=== PATIENT | male | born 1950 | race Caucasian/White ===

== ENCOUNTER 2018-03-28 07:25 | Day surgery (SDC) | payer MEDICARE, OTHER ==
[~2018-03-28] VITALS: Ht 172.7 cm; Wt 59.9 kg
--- NOTE | ~2018-03-28 | OP ---
PATIENT NAME: JANIYA MYLES MEDICAL RECORD: [id number] :48 LOCATION:.[facility] ADMISSION DATE: SURGEON: STEPHANIE CHASE MD DATE OF OPERATION: 03/28/2018 SURGEON: Stpehanie Chase MD ANESTHESIA: TIVA by Nahid Marin CRNA PREOPERATIVE DIAGNOSIS: Elevated PSA of 7.5 on 02/19/2018. PROCEDURE: Transrectal ultrasound and prostate biopsy. FINDINGS: 29 gram prostate with some intraprostatic calcifications at the apex. No hypoechoic areas. SPECIMENS: Prostate biopsy cores. ESTIMATED BLOOD LOSS: None. CLINICAL HISTORY: This is a 67-year-old male, who was referred by Dr. Lavell Rodríguez for an elevated PSA of 7.5. This blood test was obtained on 02/19/2018. On 03/03/2017, the PSA was 0.97. He has no voiding symptoms. He has no family history of prostate cancer. On rectal examination, the prostate felt somewhat enlarged. He comes today to have a prostate biopsy performed. He is allergic to CODEINE and PENICILLIN. He was given Levaquin IV cement mason apprentice to the OR. DESCRIPTION OF PROCEDURE: The patient was given IV sedation. He was then placed into the lithotomy position. The transrectal ultrasound probe was introduced and prostate size measurements were obtained. The prostate is measured at 29 grams. Sextant biopsies were then obtained with at least 3 cores from each sextant. Once all the specimens were obtained, the procedure was terminated. The patient will be seen next week to review the pathology results. TRANSINT:[id number] Voice Confirmation ID: [id number] DOCUMENT ID: [id number] STEPHANIE CHASE MD at 1252 CC: [id number] DICTATION DATE: 03/28/18 1232 NETWORK LEAD: 03/28/18 1248 [id number] [place] [id number]
[~2018-03-28 07:25] MED LIST: MULTI-DAY VITAM1 TAB PO
[2018-03-28] MEDS ORDERED: SMZ-TMP DS TAB 800 (08:22)
[2018-03-28 08:39] VITALS: BP 138/81; Ht 172.7 cm; Wt 59.9 kg
[2018-03-28 08:47] LABS: HEMATOCRIT 41.3 % (42.0-54.0); MCHC 33.9 g/dL (31.0-37.0); MCV 94.5 fL (80.0-100.0); MEAN PLATELET VOLUME 10.7 fL (7.4-10.4); RBC 4.37 10x6/uL (4.20-6.10); RDW 12.9 % (11.5-14.5); WBC 3.4 10x3/uL (4.8-10.8)
== END 2018-03-28 14:40 | disposition home or self-care (01) ==
LOC: D.OPS 07:25 → D.PAN 09:15 → D.OPS 09:15
PROVIDERS: Anesthesiology
DX: R97.20 Elevated prostate specific antigen [PSA] (principal); Z88.5 Allergy status to narcotic agent; Z88.0 Allergy status to penicillin; Z01.812 Encounter for preprocedural laboratory examination